=== PATIENT | female | born 1995 | race Two or more races ===

== ENCOUNTER 2017-03-11 14:03 | Emergency (ER) | payer OTHER ==
[~2017-03-11] VITALS: Ht 154.9 cm; Wt 45.1 kg
[2017-03-11 17:01] LABS: BASO % 0.3 % (0.0-1.0); EOS # 0.1 10^3/uL (0.0-0.50); EOS % 0.8 % (0.0-3.0); IMMATURE GRANULOCYTE % 0.3 % (0-0); LYMPH % 33.5 % (24.0-44.0); MEAN CORPUSCULAR HEMOGLOBIN 30.4 pg (27.0-33.0); MEAN CORPUSCULAR HGB CONC 34.7 g/dl (32.0-36.5); MEAN CORPUSCULAR VOLUME 87.7 fl (80.0-96.0); MONO # 0.3 10^3/uL (0.0-0.8); MONO % 5.4 % (0.0-5.0); NEUTROPHILS # 3.5 10^3/uL (1.8-7.7); NEUTROPHILS % 59.7 % (36.0-66.0); PLATELET COUNT, AUTOMATED 276 10^3/uL (150-450); RED CELL DISTRIBUTION WIDTH 11.6 % (11.5-14.5); WHITE BLOOD COUNT 5.9 10^3/uL (4.0-10.0)
[2017-03-11 17:07] LABS: ADD MORPHOLOGY? NO
[2017-03-11 17:34] LABS: ANION GAP 7 MEQ/L (8-16); BLOOD UREA NITROGEN 7 MG/DL (7-18); CALCIUM LEVEL 9.6 MG/DL (8.5-10.1); CARBON DIOXIDE LEVEL 27 MEQ/L (21-32); CHLORIDE LEVEL 105 MEQ/L (98-107); CREATININE FOR GFR 0.55 MG/DL (0.55-1.02); GLUCOSE, FASTING 80 MG/DL (70-105); HCG, SERUM QUANTITATIVE 8417 MIU/ML; POTASSIUM SERUM 4.1 MEQ/L (3.5-5.1); SODIUM LEVEL 139 MEQ/L (136-145)
--- NOTE | 2017-03-11 17:42 | REP ---
First trimester obstetric ultrasound, emergency room request for vaginal bleeding: There are no comparison studies. The studies performed with transabdominal, endovaginal and Doppler ultrasound assessment balloon. The bladder is poorly distended and transabdominal images are suboptimal. The uterus is empty everted and an T5 flexed. The uterus is normal size measuring 8.0 x 3.3 x 3.8 cm. There is an intrauterine gestational sac with irregular vilchis. There is no pole. However, there is a yolk sac measuring 3 mm in diameter. The findings are nonspecific and may represent an intrauterine gestation with a pole not yet visible or spontaneous . Ectopic gestation cannot be entirely excluded. No subchorionic hematoma is identified. The ovaries are normal size. The right ovary measures 3.0 x 1.4 x 8-0.9 cm. The left ovary measures 2.6 x 1.6 x 1.6 cm. There are no dominant ovarian masses or cyst. There is vascular flow in both ovaries. The Doppler resistive index of the intraparenchymal arteries on the right is 0.55 and on the left 0.52. There is no free fluid in the pelvis. Impression: Irregular intrauterine gestational sac without a pole, however, there is a yolk sac. The findings could represent an intrauterine gestation with the pole not yet visible by ultrasound, spontaneous , ectopic gestation. There are no dominant ovarian masses or cyst. There is vascular flow in both ovaries. There are no adnexal masses or cysts. No free fluid Signed by Heber Krause MD 03/11/2017 05:33 P
[2017-03-11] MEDS ORDERED: MACR100C43 PO (17:52)
[2017-03-11] MEDS: NITROFURANTOIN (MACROBID) 100 MG CAP PO ONE (17:57)
[2017-03-11 18:10] VITALS: BP 122/81
== END 2017-03-11 18:11 | disposition home or self-care (01) ==
LOC: M ED 14:03
DX: O20.9 Hemorrhage in early pregnancy, unspecified (principal); O23.41 Unspecified infection of urinary tract in pregnancy, first trimester; Z3A.01 Less than 8 weeks gestation of pregnancy

== ENCOUNTER 2017-03-12 02:41 | Emergency (ER) | payer OTHER ==
[~2017-03-12] VITALS: Ht 154.9 cm; Wt 45.2 kg
[~2017-03-12 02:41] MED LIST: MACR100C43 PO
[2017-03-12 03:06] VITALS: BP 122/79
[2017-03-12 03:37] LABS: BASO % 0.4 % (0.0-1.0); EOS # 0.1 10^3/uL (0.0-0.50); EOS % 1.3 % (0.0-3.0); IMMATURE GRANULOCYTE % 0.1 % (0-0); LYMPH # 2.3 10^3/uL (1.5-6.5); MEAN CORPUSCULAR HEMOGLOBIN 30.5 pg (27.0-33.0); MEAN CORPUSCULAR HGB CONC 34.9 g/dl (32.0-36.5); MEAN CORPUSCULAR VOLUME 87.3 fl (80.0-96.0); MONO # 0.5 10^3/uL (0.0-0.8); MONO % 7.4 % (0.0-5.0); NEUTROPHILS # 3.9 10^3/uL (1.8-7.7); NEUTROPHILS % 56.8 % (36.0-66.0); PLATELET COUNT, AUTOMATED 270 10^3/uL (150-450); RED CELL DISTRIBUTION WIDTH 11.8 % (11.5-14.5); WHITE BLOOD COUNT 6.9 10^3/uL (4.0-10.0)
--- NOTE | 2017-03-12 05:20 | REPUSA ---
CLINICAL HISTORY: Pain. TECHNIQUE: Transabdominal ultrasound of the pelvis was performed. FINDINGS: The uterus is normal in size measuring 8.3 x3.6x4.2 cm. Gestational sac is noted in the lower uterine segment/uterine cervix measuring 13.9 mm which correspo nds to an estimated gestation age of 6 weeks and 2 days. Normal ovaries. Endometrial thickness 9.1 mm. IMPRESSION: in progress. A gestational sac is noted in the lower uterine segment/cervix.
== END 2017-03-12 04:50 | disposition home or self-care (01) ==
LOC: M ED 02:41
DX: O03.4 Incomplete spontaneous abortion without complication (principal); Z3A.01 Less than 8 weeks gestation of pregnancy

== ENCOUNTER 2018-07-06 19:09 | Emergency (ER) | payer OTHER ==
[~2018-07-06] VITALS: Ht 154.9 cm; Wt 49.7 kg
[2018-07-06 19:10] VITALS: BP 129/81
[2018-07-06] MEDS ORDERED: PRENTAB45 PO (19:21)
[2018-07-06] MEDS ORDERED: NS 1,000 ML IV ONE (20:15)
[2018-07-06] MEDS ORDERED: METOCLOPRAMIDE INJ 10MG/2ML VIAL (J2765) IV ONE (20:15)
[2018-07-06] MEDS ORDERED: raNITIdine SYRUP 150 MG/10 ML UDC PO ONE (20:30)
[2018-07-06 21:01] LABS: BASO % 0.4 % (0.0-1.0); EOS # 0.1 10^3/uL (0.0-0.50); EOS % 0.8 % (0.0-3.0); HEMATOCRIT 41.5 % (36.0-47.0); HEMOGLOBIN 14.6 g/dl (12.0-15.5); LYMPH # 3.6 10^3/uL (1.5-6.5); LYMPH % 36.8 % (24.0-44.0); MEAN CORPUSCULAR HGB CONC 35.2 g/dl (32.0-36.5); MEAN CORPUSCULAR VOLUME 88.1 fl (80.0-96.0); MONO # 0.8 10^3/uL (0.0-0.8); MONO % 7.9 % (0.0-5.0); NEUTROPHILS # 5.3 10^3/uL (1.8-7.7); NEUTROPHILS % 53.9 % (36.0-66.0); PLATELET COUNT, AUTOMATED 321 10^3/uL (150-450); RED BLOOD COUNT 4.71 10^6/uL (4.00-5.40); WHITE BLOOD COUNT 9.9 10^3/uL (4.0-10.0)
[2018-07-06 21:16] LABS: URINE PREG TEST POSITIVE (NEGATIVE)
[2018-07-06 21:42] LABS: BLOOD UREA NITROGEN 5 MG/DL (7-18); CARBON DIOXIDE LEVEL 23 MEQ/L (21-32); CHLORIDE LEVEL 105 MEQ/L (98-107); CREATININE FOR GFR 0.66 MG/DL (0.55-1.30); GLOMERULAR FILTRATION RATE > 60.0 (>60); GLUCOSE, FASTING 69 MG/DL (70-100); HCG, SERUM QUANTITATIVE 48661 MIU/ML; POTASSIUM SERUM 3.7 MEQ/L (3.5-5.1); SODIUM LEVEL 137 MEQ/L (136-145)
[2018-07-06] MEDS ORDERED: GI COCKTAIL 50ML BTL(HYOSCYAMINE/MAALOX/LIDOCAINE VISCOUS)(1:3:1) PO ONE (22:15)
[2018-07-06] MEDS ORDERED: RANI15TA PO (22:28)
[2018-07-06] MEDS ORDERED: REGL10TA6 PO (22:28)
== END 2018-07-06 22:41 | disposition home or self-care (01) ==
LOC: M ED 19:09
DX: O21.9 Vomiting of pregnancy, unspecified (principal); Z3A.01 Less than 8 weeks gestation of pregnancy; Z87.891 Personal history of nicotine dependence
CPT/HCPCS: 80048; 81001; 84702; 84703; 85025; 96374; 99283; J2765

== ENCOUNTER 2018-10-11 01:54 | Emergency (ER) | payer OTHER ==
[~2018-10-11 01:54] MED LIST changes: +PRENTAB45 PO; +RANI15TA PO; +REGL10TA6 PO
[2018-10-11] MEDS ORDERED: AUGM500T34 PO (02:36)
[2018-10-11 02:45] VITALS: BP 99/72
[2018-10-11] MEDS ORDERED: AUGMENTIN 875 MG TAB PO ONE (02:45)
== END 2018-10-11 03:04 | disposition home or self-care (01) ==
LOC: M ED 01:54
DX: O99.89 Other specified diseases and conditions complicating pregnancy, childbirth and the puerperium (principal); H66.91 Otitis media, unspecified, right ear; Z3A.20 20 weeks gestation of pregnancy

== ENCOUNTER 2019-01-05 21:57 | Outpatient (CLI) | payer OTHER ==
[~2019-01-05] VITALS: Ht 154.9 cm; Wt 61.1 kg
[~2019-01-05 21:57] MED LIST changes: +AUGM500T34 PO
[2019-01-05] MEDS ORDERED: LR 1,000 ML IV ONE (23:00)
[2019-01-05 23:24] LABS: APPEARANCE, URINE HAZY (CLEAR); BACTERIA, URINE AUTO 3+ (NEGATIVE); BILIRUBIN, URINE AUTO NEGATIVE (NEGATIVE); BLOOD, URINE BLOOD NEGATIVE (NEGATIVE); COLOR, URINE YELLOW (YELLOW); GLUCOSE, URINE (UA) AUTO NEGATIVE (NEGATIVE); KETONE, URINE AUTO NEGATIVE (NEGATIVE); LEUKOCYTE ESTERASE, URINE AUTO NEGATIVE (NEGATIVE); MUCUS, URINE SMALL (NEGATIVE); NITRITE, URINE AUTO NEGATIVE (NEGATIVE); PROTEIN, URINE AUTO NEGATIVE (NEGATIVE); RBC, URINE AUTO 1 /HPF (0-3); SPECIFIC GRAVITY URINE AUTO 1.005 (1.002-1.035); SQUAMOUS EPITHELIAL CELL UR AU 7 /HPF (0-6); TRANSITIONAL EPITHELIAL AUTO <1 /HPF; UROBILINOGEN, URINE AUTO 0.2 mg/dL (0.0-2.0); WBC, URINE AUTO 8 /HPF (0-3)
--- NOTE | 2019-01-06 01:07 | IPNPDOC ---
Text Note Date of Service The patient was seen on 01/06/19. NOTE 23 yo at 32+2 weeks gestation presented to L&D with complaint of abdominal and pelvic cramping that has been worsening throughout the day and night. She denies any vaginal bleeding or leakage of fluid but she has had some scant discharge. She endorses excellent movement. Chaperoned by L&D RN Vitals - VSS, normotensive, afebrile, non tachycardic General - AAXO3, sitting up in bed, NAD Abdomen - Gravid uterus, no fundal tenderness Speculum exam - Normal external genitalia. Speculum placed into the vagina and the cervix was visualized and appeared closed. Scant white discharge in vaginal vault. FFN obtained, and AMBER and wet mount obtained. Speculum removed. Digital cervical exam - cl/thick/high, posterior. Unchanged on repeat exam ~2 hours later. FHR tracing - Cat I with moderate variability, +accels, no decels. Ctx initially Q2-4 mins on toco. Labs: FFN - negative Microscopy - Negative for clue cells or yeast UA - SG 1.005, 7 epis, negative nitrites, negative leuk est, Triage course: Given IV fluid bolus and monitored. Contractions spaced after IV fluids and observation. Cervix closed and unchanged on repeat exam ~2 hours later. FFN negative. Very low likelihood of labor. No evidence of infection, but will follow up on urine culture. Patient discharged home with return precautions. She has an appointment scheduled for Friday. DO MICHEAL Griffiths CHRISTOPHER J. DO Jan 06, 2019 01:07
== END 2019-01-06 01:07 | disposition home or self-care (01) ==
LOC: M LDO 21:57
PROVIDERS: ATTEND Obstetrics & Gynecology
DX: O26.893 Other specified pregnancy related conditions, third trimester (principal); R10.2 Pelvic and perineal pain; Z3A.32 32 weeks gestation of pregnancy
CPT/HCPCS: 59025; 81001; 82731; 87086; 96360; G0378; G0463